=== PATIENT | male | born 1960 | race Caucasian/White ===

== ENCOUNTER 2019-05-11 11:02 | Observation (INO) | payer BC ==
[~2019-05-11] VITALS: Ht 165.1 cm; Wt 65.1 kg
--- NOTE | 2019-05-11 11:26 | PHYS DOC ---
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 Per EMS report patient's home health nurse showed up to his house and found him lethargic. Patient reports using 2 of his insulins but does not remember the names. EMS reported blood glucose was 109 on their arrival, glucose was repeated which was noted to be 31, they stated D10. Patient appears lethargic though arousable and able to carry small conversations. EMS reports his blood glucose usually runs at 500 baseline Review of Systems Review of Systems Constitutional: Denies fever or chills [] Eyes: Denies change in visual acuity, redness, or eye pain [] HENT: Denies nasal congestion or sore throat [] Respiratory: Denies cough or shortness of breath [] Cardiovascular: No additional information not addressed in HPI [] GI: Denies abdominal pain, nausea, vomiting, bloody stools or diarrhea [] : Denies dysuria or hematuria [] Musculoskeletal: Denies back pain or joint pain [] Integument: Denies rash or skin lesions [] Neurologic: Denies headache, focal weakness or sensory changes [] Endocrine: Reports hypoglycemia All other systems were reviewed and found to be within normal limits, except as documented in this note. Allergies Allergies Allergies Coded Allergies Type Severity Reaction Last Updated Verified No Known Drug Allergies 05/11/19 No Physical Exam Physical Exam Constitutional: Well developed, well nourished, no acute distress, non-toxic appearance. [] HENT: Normocephalic, atraumatic, bilateral external ears normal, oropharynx moist, no oral exudates, nose normal. [] Eyes: PERRLA, EOMI, conjunctiva normal, no discharge. [] Neck: Normal range of motion, no tenderness, supple, no stridor. [] Cardiovascular:Heart rate regular rhythm, no murmur [] Lungs & Thorax: Bilateral breath sounds clear to auscultation [] Abdomen: Bowel sounds normal, soft, no tenderness, no masses, no pulsatile masses. [] Skin: Warm, dry, no erythema, no rash. [] Back: No tenderness, no CVA tenderness. [] Extremities: No tenderness, no cyanosis, no clubbing, ROM intact, no edema. Left below the knee amputation Neurologic: Appears lethargic tough alert and oriented X 3, normal motor function, normal sensory function, no focal deficits noted. [] Psychologic: Affect normal, judgement normal, mood normal. [] Current Patient Data Vital Signs Vital Signs Date Time Temp Pulse Resp B/P (MAP) Pulse Ox O2 Delivery O2 Flow Rate FiO2 05/11/19 11:21 98.5 83 19 107/56 (73) 94 Room Air 98.5 Lab Values Laboratory Tests Test 05/11/19 11:18 05/11/19 12:05 Glucose (Fingerstick) 177 mg/dL (70-99) H Sodium Level 136 mmol/L (136-145) Potassium Level 3.6 mmol/L (3.5-5.1) Chloride Level 97 mmol/L (98-107) L Carbon Dioxide Level 30 mmol/L (21-32) Anion Gap 9 (6-14) Blood Urea Nitrogen 34 mg/dL (8-26) H Creatinine 1.2 mg/dL (0.7-1.3) Estimated GFR (Cockcroft-Gault) 61.8 BUN/Creatinine Ratio 28 (6-20) H Glucose Level 55 mg/dL (70-99) L Calcium Level 8.8 mg/dL (8.5-10.1) Magnesium Level 2.1 mg/dL (1.8-2.4) Total Bilirubin 0.3 mg/dL (0.2-1.0) Aspartate Amino Transferase (AST) 15 U/L (15-37) Alanine Aminotransferase (ALT) 16 U/L (16-63) Alkaline Phosphatase 83 U/L (46-116) Troponin I Quantitative < 0.017 ng/mL (0.000-0.055) Total Protein 7.2 g/dL (6.4-8.2) Albumin 3.4 g/dL (3.4-5.0) Albumin/Globulin Ratio 0.9 (1.0-1.7) L Laboratory Tests 05/11/19 12:05 EKG EKG [address] Carlin sinus rhythm Hr 88 no STEMI[] Radiology/Procedures Radiology/Procedures [] Course & Med Decision Making Course & Med Decision Making Pertinent Labs and Imaging studies reviewed. (See chart for details) This is a 4-year-old male patient presenting to the ED today to be evaluated for hypoglycemia. Patient apparently used to abuse insulins this morning, unfortunately he does not remember the names. Blood glucose was 109 on EMS arrival, it was repeated a couple minutes later which was 31. Patient was also noted to be lethargic, was started on D10. Blood glucose in the ED 177 D10 still running. CMP with glucose of 55. NS with D5 ordered. Spoke with Dr. Martins who accepted patient for admission. Dragon Disclaimer Dragon Disclaimer This electronic medical record was generated, in whole or in part, using a voice recognition dictation system. Departure Departure Impression: Primary Impression: Hypoglycemia Disposition: ADMITTED INPATIENT Condition: STABLE Referrals: KILO BRUMFIELD MD (PCP) JADA ROSE APRN May 11, 2019 11:26
[2019-05-11 12:26] LABS: CALCIUM 8.8 mg/dL (8.5-10.1); CREATININE 1.2 mg/dL (0.7-1.3); GFR 61.8; POTASSIUM 3.6 mmol/L (3.5-5.1)
[2019-05-11 12:32] LABS: ALBUMIN 3.4 g/dL (3.4-5.0); ALBUMIN/GLOBULIN RATIO 0.9 (1.0-1.7); MAGNESIUM 2.1 mg/dL (1.8-2.4); TOTAL BILIRUBIN 0.3 mg/dL (0.2-1.0); TOTAL PROTEIN 7.2 g/dL (6.4-8.2)
[2019-05-11] MEDS ORDERED: ONDANSETRON PF 4 MG/2 ML VIAL. IV PRN (14:30)
[2019-05-11] MEDS ORDERED: IV DEXTROSE 5% - 0.9 % NACL 1,000 ML IV SCH (14:30)
[2019-05-11] MEDS ORDERED: ACETAMINOPHEN 325 MG TABLET. PO PRN (14:30)
--- NOTE | 2019-05-11 14:48 | PDOC1 ---
History and Physical Date of Admission: Date of Admission DATE: 05/11/19 TIME: 14:45 Chief Complaint: Problems: (1) Hypoglycemia Chief Complain: Hypoglycemia History of Present Illness: HPI: This is a 58-year-old male who has diabetes and probably took too much insulin earlier today This was not intentional He's not sure which type of insulin he took When he developed mental status change EMS was called They discovered a glucose of around 31 Describes as symptoms as very nauseating Rated 7 out of 10 Has associated blurred vision Spell occurring for several hours I discussed this with the ER physician we are going to admit the patient and get his glucose regulated Past Medical/Surgical History: PMH/PSH: Diabetes Noncompliance Hypertension Hyperlipidemia Allergies: Allergies: Coded Allergies: No Known Drug Allergies (Unverified , 05/11/19) Family History: Family History: Diabetes Social History: Social Hisoty: He does not drink smoke or take drugs Current Medications: Current Medications Current Medications Ondansetron HCl (Zofran) 4 mg PRN Q8HRS PRN IV NAUSEA/VOMITING; Start 05/11/19 at 14:30; Stop 05/12/19 at 14:29 Morphine Sulfate (Morphine Sulfate) 2 mg PRN Q2HR PRN IV PAIN; Start 05/11/19 at 14:30; Stop 05/12/19 at 14:29 Acetaminophen (Tylenol) 650 mg PRN Q4HRS PRN PO FEVER; Start 05/11/19 at 14:30; Stop 05/12/19 at 14:29 Dextrose/Sodium Chloride 1,000 ml @ 75 mls/hr [id number] IV ; Start 05/11/19 at 14:30 ROS: Review of Systems Review of System REVIEW OF SYSTEMS: GENERAL: Complains of weakness SKIN: No bruising, hair changes or rashes. EYES: Complains of blurred vision NOSE AND THROAT: No history of nosebleeds, hoarseness or sore throat. HEART: No history of palpitations, chest pain or shortness of breath on exertion. LUNGS: Denies cough, hemoptysis, wheezing or shortness of breath. GASTROINTESTINAL: Complains of nausea but it's improved GENITOURINARY: No history of frequency, urgency, hesitancy or nocturia. NEUROLOGIC: Complains of some visual fuzziness PSYCHIATRIC: No history of panic, anxiety or depression. ENDOCRINE: No history of heat or cold intolerance, polyuria or polydipsia. EXTREMITIES: Denies joint pain, pain on walking or stiffness. Physical Exam: Vital Signs: Vital Signs Date Time Temp Pulse Resp B/P (MAP) Pulse Ox O2 Delivery O2 Flow Rate FiO2 05/11/19 11:21 98.5 83 19 107/56 (73) 94 Room Air 98.5 Physcial Exam: GEN: No apparent distress. Alert and oriented HEENT: Normal cephalic, atraumatic, external auditory canals are patent EYES: Extraocular muscles are intact, pupil are equally round and reactive to light and accommodation MUSCULOSKELETAL: Well developed , well nourished, good range of motion ENDOCRINE: No thyromegaly was palpated LYMPHATICS: No cervical chain or axillary nodes were noted HEMATOPOIETIC: No bruising NECK: Supple, no JVD, no thyromegaly was noted LUNGS: Clear to auscultation in all lung plata without rhonchi or wheezing HEART: RRR, S!, S2 present. Peripheral pulses intact, no obvious murmurs noted ABDOMEN: Soft, nontender. Positive bowel sounds, no organomegaly, normal bowel sounds EXTREMITIES: Without clubbing, cyanosis, or edema. Pedal pulses intact. Negative Homans sign NEUROLOGIC: Normal speech and tone. A&O x 3, moves all extremities, no obvious focal deficits PSYCHIATRIC: Normal affect, normal mood. Stable SKIN: No ulcerations or rashes, good skin turgor, no jaundice VASCULAR: Good capillary refill, neurovascular bundle appears to be intact Labs: Labs: Laboratory Tests Test 05/11/19 11:18 05/11/19 12:05 Glucose (Fingerstick) 177 mg/dL (70-99) Sodium Level 136 mmol/L (136-145) Potassium Level 3.6 mmol/L (3.5-5.1) Chloride Level 97 mmol/L (98-107) Carbon Dioxide Level 30 mmol/L (21-32) Anion Gap 9 (6-14) Blood Urea Nitrogen 34 mg/dL (8-26) Creatinine 1.2 mg/dL (0.7-1.3) Estimated GFR (Cockcroft-Gault) 61.8 BUN/Creatinine Ratio 28 (6-20) Glucose Level 55 mg/dL (70-99) Calcium Level 8.8 mg/dL (8.5-10.1) Magnesium Level 2.1 mg/dL (1.8-2.4) Total Bilirubin 0.3 mg/dL (0.2-1.0) Aspartate Amino Transf (AST/SGOT) 15 U/L (15-37) Alanine Aminotransferase (ALT/SGPT) 16 U/L (16-63) Alkaline Phosphatase 83 U/L (46-116) Troponin I Quantitative < 0.017 ng/mL (0.000-0.055) Total Protein 7.2 g/dL (6.4-8.2) Albumin 3.4 g/dL (3.4-5.0) Albumin/Globulin Ratio 0.9 (1.0-1.7) Laboratory Tests Test 05/11/19 11:18 05/11/19 12:05 Glucose (Fingerstick) 177 mg/dL (70-99) Sodium Level 136 mmol/L (136-145) Potassium Level 3.6 mmol/L (3.5-5.1) Chloride Level 97 mmol/L (98-107) Carbon Dioxide Level 30 mmol/L (21-32) Anion Gap 9 (6-14) Blood Urea Nitrogen 34 mg/dL (8-26) Creatinine 1.2 mg/dL (0.7-1.3) Estimated GFR (Cockcroft-Gault) 61.8 BUN/Creatinine Ratio 28 (6-20) Glucose Level 55 mg/dL (70-99) Calcium Level 8.8 mg/dL (8.5-10.1) Magnesium Level 2.1 mg/dL (1.8-2.4) Total Bilirubin 0.3 mg/dL (0.2-1.0) Aspartate Amino Transf (AST/SGOT) 15 U/L (15-37) Alanine Aminotransferase (ALT/SGPT) 16 U/L (16-63) Alkaline Phosphatase 83 U/L (46-116) Troponin I Quantitative < 0.017 ng/mL (0.000-0.055) Total Protein 7.2 g/dL (6.4-8.2) Albumin 3.4 g/dL (3.4-5.0) Albumin/Globulin Ratio 0.9 (1.0-1.7) Assessment/Plan Assessment/Plan Hypoglycemia Plan IV glucose Hold his insulin for now Hope to resume insulin either later tonight or tomorrow morning Monitor labs Home meds DVT prophylaxis Full code EDVIN GUARDADO III DO May 11, 2019 14:48
[2019-05-11 14:53] LABS: BASO # 0.1 x10^3/uL (0.0-0.2); BASO % 1 % (0-3); EOS # 0.2 x10^3/uL (0.0-0.7); EOS % 1 % (0-3); HEMATOCRIT 36.3 % (39.0-53.0); HEMOGLOBIN 11.9 g/dL (13.0-17.5); LYMPH # 1.2 x10^3/uL (1.0-4.8); LYMPH % 10 % (24-48); MEAN CORPUSCULAR HEMOGLOBIN 28 pg (25-35); MEAN CORPUSCULAR HGB CONC 33 g/dL (31-37); MEAN CORPUSCULAR VOLUME 85 fL (79-100); MONO # 0.6 x10^3/uL (0.0-1.1); MONO % 5 % (0-9); NEUT % 84 % (31-73); PLATELET COUNT 273 x10^3/uL (140-400); RED CELL DISTRIBUTION WIDTH 16.5 % (11.5-14.5)
[2019-05-11 16:15] VITALS: BP 121/65
[2019-05-11 19:00] VITALS: BP 134/58
[2019-05-11] MEDS ORDERED: GABA600T7 PO (19:00)
[2019-05-11] MEDS ORDERED: FAMO20TA5 PO (19:00)
[2019-05-11] MEDS ORDERED: LISI2.5T PO (19:00)
[2019-05-11] MEDS ORDERED: ATOR40TA59 PO (19:00)
[2019-05-11] MEDS ORDERED: CLOP75TA PO (19:00)
[2019-05-11] MEDS ORDERED: ISOS30TA4 PO (19:00)
[2019-05-11] MEDS ORDERED: ASPI-612 PO (19:00)
[2019-05-11] MEDS ORDERED: FERR-36 PO (19:00)
[2019-05-11] MEDS ORDERED: CARV3.123 PO (19:00)
[2019-05-11] MEDS ORDERED: SPIR25TA5 PO (19:00)
[2019-05-11] MEDS ORDERED: FURO80TA3 PO (19:00)
[2019-05-11] MEDS ORDERED: INSU100V6 SQ (19:00)
[2019-05-11] MEDS ORDERED: INSU100I13 SQ (19:00)
[2019-05-11 19:57] LABS: BILIRUBIN,URINE NEGATIVE (NEG); CLARITY,URINE CLEAR; COLOR,URINE YELLOW; NITRITE,URINE NEGATIVE (NEG); PROTEIN,URINE NEGATIVE (NEG-TRACE)
[2019-05-11 20:03] LABS: BARBITURATES NEG (NEG); BENZODIAZEPINES NEG (NEG); CANNABINOIDS NEG (NEG); COCAINE NEG (NEG); METHADONE NEG (NEG); OPIATES NEG (NEG); PHENCYCLIDINE NEG (NEG)
[2019-05-11 20:04] LABS: AMPHETAMINE/METHAMPHETAMINE NEG (NEG)
[2019-05-11 20:15] LABS: BACTERIA,URINE 0 /HPF (0-FEW); RBC,URINE OCC /HPF (0-2)
[2019-05-11 20:16] LABS: SQUAMOUS EPITHELIAL CELL,UR MOD /LPF
[2019-05-11 23:00] VITALS: BP 125/62
[2019-05-12] MEDS: MORPHINE SULFATE 2 MG/ML VIAL. IV PRN ×2 (00:13→08:29)
[2019-05-12] MEDS ORDERED: DEXTROSE 50% 25 GM / 50ML DISP.SYRIN. IV PRN (01:15)
[2019-05-12] MEDS ORDERED: IV DEXTROSE 5% 250 ML BAG. IV PRN (01:15)
--- NOTE | 2019-05-12 01:23 | NUR ---
Called Dr. Escamilla about elevated BS 302. Was given telephone order to add low dose sliding scale and a one time order now. changed fluids to Normal Saline At 50 Ml/hr.
[2019-05-12] MEDS ORDERED: IV NORMAL SALINE 1000ML BAG 1,000 ML IV SCH (01:30)
[2019-05-12] MEDS ORDERED: INSULIN LISPRO 300 UNITS/3 ML VIAL. SQ ONE (02:00)
[2019-05-12 03:00] VITALS: BP 122/76
[2019-05-12 06:00] LABS: CALCIUM 8.7 mg/dL (8.5-10.1); CREATININE 0.8 mg/dL (0.7-1.3); GFR 98.6; POTASSIUM 3.9 mmol/L (3.5-5.1)
--- NOTE | 2019-05-12 06:30 | EKG ---
[facility] [address] [place] [address] Test Date: 2019-05-11 Test Time: 11:35:30 Pat Name: KARIE PARK Department: Room: [facility] Gender: M E Commerce Developer: : 1960 Requested By: EDVIN GUARDADO Order Number: [id number] Reading MD: Measurements Intervals [place] Rate: 87 P: 42 CA: 162 QRS: 43 QRSD: 70 T: 67 QT: 364 QTc: 443 Interpretive Statements SINUS RHYTHM ATRIAL PREMATURE COMPLEX(ES) R-S TRANSITION ZONE IN V LEADS DISPLACED TO THE RIGHT OTHERWISE NORMAL ECG No previous ECG available for comparison
[2019-05-12 07:00] VITALS: BP 143/68
[2019-05-12] MEDS: INSULIN LISPRO 300 UNITS/3 ML VIAL. SQ SCH ×3 (08:00→17:36)
[2019-05-12 11:00] VITALS: BP 143/86
[2019-05-12] MEDS ORDERED: ASCORBIC ACID 500 MG TABLET PO SCH (11:00)
[2019-05-12] MEDS ORDERED: MULTIVITAMIN with MINERAL TABLET. PO SCH (11:00)
[2019-05-12] MEDS ORDERED: INSU100I13 SQ (11:55)
--- NOTE | 2019-05-12 12:01 | PDOC3 ---
Discharge Summary Visit Information Date of Admission: May 11, 2019 Date of Discharge: May 12, 2019 Final Diagnosis Hypoglycemia Hold his insulin for now Hope to resume insulin either later tonight or tomorrow morning Monitor labs Home meds DVT prophylaxis Full code Problems Medical Problems: (1) Hypoglycemia Status: Acute Brief Hospital Course Allergies Allergies Coded Allergies Type Severity Reaction Last Updated Verified No Known Drug Allergies 05/11/19 No Vital Signs Vital Signs Date Time Temp Pulse Resp B/P (MAP) Pulse Ox O2 Delivery O2 Flow Rate FiO2 05/12/19 09:02 16 Room Air 05/12/19 07:00 97.9 89 143/68 (93) 96 97.9 Lab Results Laboratory Tests Test 05/11/19 11:18 05/11/19 12:05 05/11/19 14:35 05/11/19 15:36 Glucose (Fingerstick) 177 mg/dL (70-99) 103 mg/dL (70-99) Sodium Level 136 mmol/L (136-145) Potassium Level 3.6 mmol/L (3.5-5.1) Chloride Level 97 mmol/L (98-107) Carbon Dioxide Level 30 mmol/L (21-32) Anion Gap 9 (6-14) Blood Urea Nitrogen 34 mg/dL (8-26) Creatinine 1.2 mg/dL (0.7-1.3) Estimated GFR (Cockcroft-Gault) 61.8 BUN/Creatinine Ratio 28 (6-20) Glucose Level 55 mg/dL (70-99) Calcium Level 8.8 mg/dL (8.5-10.1) Magnesium Level 2.1 mg/dL (1.8-2.4) Total Bilirubin 0.3 mg/dL (0.2-1.0) Aspartate Amino Transf (AST/SGOT) 15 U/L (15-37) Alanine Aminotransferase (ALT/SGPT) 16 U/L (16-63) Alkaline Phosphatase 83 U/L (46-116) Troponin I Quantitative < 0.017 ng/mL (0.000-0.055) Total Protein 7.2 g/dL (6.4-8.2) Albumin 3.4 g/dL (3.4-5.0) Albumin/Globulin Ratio 0.9 (1.0-1.7) White Blood Count 12.0 x10^3/uL (4.0-11.0) Red Blood Count 4.30 x10^6/uL (4.30-5.70) Hemoglobin 11.9 g/dL (13.0-17.5) Hematocrit 36.3 % (39.0-53.0) Mean Corpuscular Volume 85 fL (79-100) Mean Corpuscular Hemoglobin 28 pg (25-35) Mean Corpuscular Hemoglobin Concent 33 g/dL (31-37) Red Cell Distribution Width 16.5 % (11.5-14.5) Platelet Count 273 x10^3/uL (140-400) Neutrophils (%) (Auto) 84 % (31-73) Lymphocytes (%) (Auto) 10 % (24-48) Monocytes (%) (Auto) 5 % (0-9) Eosinophils (%) (Auto) 1 % (0-3) Basophils (%) (Auto) 1 % (0-3) Neutrophils # (Auto) 10.0 x10^3/uL (1.8-7.7) Lymphocytes # (Auto) 1.2 x10^3/uL (1.0-4.8) Monocytes # (Auto) 0.6 x10^3/uL (0.0-1.1) Eosinophils # (Auto) 0.2 x10^3/uL (0.0-0.7) Basophils # (Auto) 0.1 x10^3/uL (0.0-0.2) Test 05/11/19 16:28 05/11/19 19:50 05/11/19 20:25 05/12/19 00:45 Glucose (Fingerstick) 150 mg/dL (70-99) 266 mg/dL (70-99) 302 mg/dL (70-99) Urine Collection Type Unknown Urine Color Yellow Urine Clarity Clear Urine pH 6.0 Urine Specific [place] 1.015 Urine Protein Negative mg/dL (NEG-TRACE) Urine Glucose (UA) 100 mg/dL (NEG) Urine Ketones (Stick) Negative mg/dL (NEG) Urine Blood Negative (NEG) Urine Nitrite Negative (NEG) Urine Bilirubin Negative (NEG) Urine Urobilinogen Dipstick 1.0 mg/dL (0.2 mg/dL) Urine Leukocyte Esterase Trace (NEG) Urine RBC Occ /HPF (0-2) Urine WBC 5-10 /HPF (0-4) Urine Squamous Epithelial Cells Mod /LPF Urine Bacteria 0 /HPF (0-FEW) Urine Opiates Screen Neg (NEG) Urine Methadone Screen Neg (NEG) Urine Barbiturates Neg (NEG) Urine Phencyclidine Screen Neg (NEG) Urine Amphetamine/Methamphetamine Neg (NEG) Urine Benzodiazepines Screen Neg (NEG) Urine Cocaine Screen Neg (NEG) Urine Cannabinoids Screen Neg (NEG) Urine Ethyl Alcohol Neg (NEG) Test 05/12/19 03:17 05/12/19 04:10 05/12/19 07:51 05/12/19 11:23 Glucose (Fingerstick) 201 mg/dL (70-99) 197 mg/dL (70-99) 307 mg/dL (70-99) Sodium Level 136 mmol/L (136-145) Potassium Level 3.9 mmol/L (3.5-5.1) Chloride Level 101 mmol/L (98-107) Carbon Dioxide Level 28 mmol/L (21-32) Anion Gap 7 (6-14) Blood Urea Nitrogen 20 mg/dL (8-26) Creatinine 0.8 mg/dL (0.7-1.3) Estimated GFR (Cockcroft-Gault) 98.6 Glucose Level 194 mg/dL (70-99) Calcium Level 8.7 mg/dL (8.5-10.1) Laboratory Tests Test 05/11/19 12:05 05/11/19 14:35 05/11/19 15:36 05/11/19 16:28 Sodium Level 136 mmol/L (136-145) Potassium Level 3.6 mmol/L (3.5-5.1) Chloride Level 97 mmol/L (98-107) Carbon Dioxide Level 30 mmol/L (21-32) Anion Gap 9 (6-14) Blood Urea Nitrogen 34 mg/dL (8-26) Creatinine 1.2 mg/dL (0.7-1.3) Estimated GFR (Cockcroft-Gault) 61.8 BUN/Creatinine Ratio 28 (6-20) Glucose Level 55 mg/dL (70-99) Calcium Level 8.8 mg/dL (8.5-10.1) Magnesium Level 2.1 mg/dL (1.8-2.4) Total Bilirubin 0.3 mg/dL (0.2-1.0) Aspartate Amino Transf (AST/SGOT) 15 U/L (15-37) Alanine Aminotransferase (ALT/SGPT) 16 U/L (16-63) Alkaline Phosphatase 83 U/L (46-116) Troponin I Quantitative < 0.017 ng/mL (0.000-0.055) Total Protein 7.2 g/dL (6.4-8.2) Albumin 3.4 g/dL (3.4-5.0) Albumin/Globulin Ratio 0.9 (1.0-1.7) White Blood Count 12.0 x10^3/uL (4.0-11.0) Red Blood Count 4.30 x10^6/uL (4.30-5.70) Hemoglobin 11.9 g/dL (13.0-17.5) Hematocrit 36.3 % (39.0-53.0) Mean Corpuscular Volume 85 fL (79-100) Mean Corpuscular Hemoglobin 28 pg (25-35) Mean Corpuscular Hemoglobin Concent 33 g/dL (31-37) Red Cell Distribution Width 16.5 % (11.5-14.5) Platelet Count 273 x10^3/uL (140-400) Neutrophils (%) (Auto) 84 % (31-73) Lymphocytes (%) (Auto) 10 % (24-48) Monocytes (%) (Auto) 5 % (0-9) Eosinophils (%) (Auto) 1 % (0-3) Basophils (%) (Auto) 1 % (0-3) Neutrophils # (Auto) 10.0 x10^3/uL (1.8-7.7) Lymphocytes # (Auto) 1.2 x10^3/uL (1.0-4.8) Monocytes # (Auto) 0.6 x10^3/uL (0.0-1.1) Eosinophils # (Auto) 0.2 x10^3/uL (0.0-0.7) Basophils # (Auto) 0.1 x10^3/uL (0.0-0.2) Glucose (Fingerstick) 103 mg/dL (70-99) 150 mg/dL (70-99) Test 05/11/19 19:50 05/11/19 20:25 05/12/19 00:45 05/12/19 03:17 Urine Collection Type Unknown Urine Color Yellow Urine Clarity Clear Urine pH 6.0 Urine Specific [place] 1.015 Urine Protein Negative mg/dL (NEG-TRACE) Urine Glucose (UA) 100 mg/dL (NEG) Urine Ketones (Stick) Negative mg/dL (NEG) Urine Blood Negative (NEG) Urine Nitrite Negative (NEG) Urine Bilirubin Negative (NEG) Urine Urobilinogen Dipstick 1.0 mg/dL (0.2 mg/dL) Urine Leukocyte Esterase Trace (NEG) Urine RBC Occ /HPF (0-2) Urine WBC 5-10 /HPF (0-4) Urine Squamous Epithelial Cells Mod /LPF Urine Bacteria 0 /HPF (0-FEW) Urine Opiates Screen Neg (NEG) Urine Methadone Screen Neg (NEG) Urine Barbiturates Neg (NEG) Urine Phencyclidine Screen Neg (NEG) Urine Amphetamine/Methamphetamine Neg (NEG) Urine Benzodiazepines Screen Neg (NEG) Urine Cocaine Screen Neg (NEG) Urine Cannabinoids Screen Neg (NEG) Urine Ethyl Alcohol Neg (NEG) Glucose (Fingerstick) 266 mg/dL (70-99) 302 mg/dL (70-99) 201 mg/dL (70-99) Test 05/12/19 04:10 05/12/19 07:51 05/12/19 11:23 Sodium Level 136 mmol/L (136-145) Potassium Level 3.9 mmol/L (3.5-5.1) Chloride Level 101 mmol/L (98-107) Carbon Dioxide Level 28 mmol/L (21-32) Anion Gap 7 (6-14) Blood Urea Nitrogen 20 mg/dL (8-26) Creatinine 0.8 mg/dL (0.7-1.3) Estimated GFR (Cockcroft-Gault) 98.6 Glucose Level 194 mg/dL (70-99) Calcium Level 8.7 mg/dL (8.5-10.1) Glucose (Fingerstick) 197 mg/dL (70-99) 307 mg/dL (70-99) Brief Hospital Course Mr. Vanegas is a 58 old male, admit with weakness, symptomatic hypoglycemia, poss overdose Discharge Information Condition at Discharge: Improved Follow Up: Weeks Disposition/Orders: D/C to Home w/ HH Scheduled Aspirin (Aspirin Ec) 81 Mg Tablet.dr, 1 TAB PO DAILY for unknown, #30 Ref 3 (Reported) Entered as Reported by: ALEX COLIN on 05/11/191899 Last Taken: Unknown Dose on Unknown Date & Time Last Action: Reviewed on 05/11/191900 by ALEX COLIN Atorvastatin Calcium (Atorvastatin Calcium) 40 Mg Tablet, 40 MG PO QHS for unknown, (Reported) Entered as Reported by: ALEX COLIN on 05/11/191899 Last Taken: Unknown Dose on Unknown Date & Time Last Action: Reviewed on 05/11/191900 by ALEX COLIN Carvedilol (Carvedilol) 3.125 Mg Tablet, 3.125 MG PO BID for unknown, (Reported) Entered as Reported by: ALEX COLIN on 05/11/191899 Last Taken: Unknown Dose on Unknown Date & Time Last Action: Reviewed on 05/11/191900 by ALEX COLIN Clopidogrel Bisulfate (Clopidogrel) 75 Mg Tablet, 75 MG PO DAILY for unknown, (Reported) Entered as Reported by: ALEX COLIN on 05/11/191899 Last Taken: Unknown Dose on Unknown Date & Time Last Action: Reviewed on 05/11/191900 by ALEX COLIN Famotidine (Famotidine) 20 Mg Tablet, 20 MG PO BID for unknown, (Reported) Entered as Reported by: ALEX COLIN on 05/11/191899 Last Taken: Unknown Dose on Unknown Date & Time Last Action: Reviewed on 05/11/191900 by ALEX COLIN Ferrous Sulfate (Iron) 325 Mg Tablet, 1 TAB PO DAILY for supplement for 30 Days, #30 Ref 0 (Reported) Entered as Reported by: ALEX COLIN on 05/11/191899 Last Taken: Unknown Dose on Unknown Date & Time Last Action: Reviewed on 05/11/191900 by ALEX COLIN Furosemide (Furosemide) 80 Mg Tablet, 80 MG PO BID for unknown, (Reported) Entered as Reported by: ALEX COLIN on 05/11/191899 Last Taken: Unknown Dose on Unknown Date & Time Last Action: Reviewed on 05/11/191900 by ALEX COLIN Gabapentin (Gabapentin) 600 Mg Tablet, 600 MG PO QID for unknown, (Reported) Entered as Reported by: ALEX COLIN on 05/11/191899 Last Taken: Unknown Dose on Unknown Date & Time Last Action: Reviewed on 05/11/191900 by ALEX COLIN Insulin Glargine,Hum.rec.anlog (Lantus Solostar) 100 Unit/1 Ml Insuln.pen, 15 UNIT SQ QHS for dm, #15 Ref 3 (Reported) Entered as Reported by: ALEX COLIN on 05/11/191899 Last Action: Reviewed on 05/11/191900 by ALEX COLIN Insulin Lispro (Humalog) 100 Unit/1 Ml Vial, 4 UNIT SQ QIDACHS for dm, (Reported) Entered as Reported by: ALEX COLIN on 05/11/191899 Last Taken: Unknown Dose on Unknown Date & Time Last Action: Reviewed on 05/11/191900 by ALEX COLIN Isosorbide Mononitrate (Isosorbide Mononitrate Er) 30 Mg Tab.er.24h, 30 MG PO DAILY for unknown, (Reported) Entered as Reported by: ALEX COLIN on 05/11/191899 Last Taken: Unknown Dose on Unknown Date & Time Last Action: Reviewed on 05/11/191900 by ALEX COLIN Lisinopril (Lisinopril) 2.5 Mg Tablet, 2.5 MG PO DAILY for HTN, (Reported) Entered as Reported by: ALEX COLIN on 05/11/191899 Last Taken: Unknown Dose on 05/11/19 Last Action: Reviewed on 05/11/191900 by ALEX COLIN Spironolactone (Spironolactone) 25 Mg Tablet, 25 MG PO DAILY for CHF, (Reported) Entered as Reported by: ALEX COLIN on 05/11/191899 Last Taken: Unknown Dose on Unknown Date & Time Last Action: Reviewed on 05/11/191900 by ALEX COLIN Patient Instructions Patient Instructions < 30 min NAVJOT VILCHIS MD May 12, 2019 12:01
--- NOTE | 2019-05-12 12:22 | NUR ---
Wound Care Wound care consult for left BKA dehisced incision. Wound bed is soft slough covered. Wound cleansed and redressed with Medihoney, Xeroform and foam dressing, secured with Kerlix. Recommend to change every 2-3 days. No other wounds noted. Pt stated Dr Fernandez is managing wound but knows he can call wound clinic if he wants to see us. Pt is discharging today. Pt educated on wound care and PU prevention.
--- NOTE | 2019-05-12 13:47 | NUR ---
SW following. Discussed with RN, pt is discharging home today with home health. Pt has [facility]. SW awaiting the discharge paperwork to fax to [facility]. RN notified. RN arranging transportation with [facility] transport. SW will continue to follow.
--- NOTE | 2019-05-12 13:49 | SNU/HH DC ---
DISCHARGE WITH HOME HEALTH DISCHARGE INFORMATION: Discharge Date: May 12, 2019 Final Diagnosis: Problems Medical Problems: (1) Hypoglycemia Status: Acute Condition on Discharge: Stable CODE STATUS: Code Status: Full HOME HEALTH: Face to Face: I certify this patient is under my care and that I, or a nurse practitioner or physician's metal moulder's assistant working with me, had a face to face encounter that meets the physician face to face encounter requirements with this patient on []. Medical Complications: DM Alf For: Assess & Educate Safety, Medication Management RN For Eval/Treatment: Yes Physical Therapy For: Evalulation/Treatment Occupational Therapy For: Evaluation/Treatment Pt Meets Homebound Status: Extreme weakness w/ amb., Limited distance walking, Poor cognition POST DISCHARGE ORDERS: Activity Instructions for Disc: Resume previous activity, Activity as tolerated Weight Bearing Status after Di: No restrictions, Full weight bearing, As tolerated CERTIFICATION STATEMENT: Certification Statement: Certification Statement: Based on the above finding, I certify that this patient is confined to the home and needs intermittent alf care, physical therapy and/or speech therapy, or continues to need occupational therapy.~ This patient is under my care, and I have initiated the establishment of the plan of care.~ This patient will be followed by myself or a community physician who will periodically review the plan of care. Home Meds Reported Medications Aspirin (ASPIRIN EC) 81 Mg Tablet.dr, 1 TAB PO DAILY for unknown, #30 TAB 3 Re fills 05/11/19 Famotidine (FAMOTIDINE) 20 Mg Tablet, 20 MG PO BID for unknown, TAB 05/11/19 Ferrous Sulfate (IRON) 325 Mg Tablet, 1 TAB PO DAILY for supplement for 30 Days, #30 TAB 0 Refills 05/11/19 Insulin Glargine,Hum.rec.anlog (LANTUS SOLOSTAR) 100 Unit/1 Ml Insuln.pen, 15 UNIT SQ QHS for dm, #15 ML 3 Refills 05/11/19 Insulin Lispro (HUMALOG) 100 Unit/1 Ml Vial, 4 UNIT SQ QIDACHS for dm, VIAL 05/11/19 Gabapentin (GABAPENTIN) 600 Mg Tablet, 600 MG PO QID for unknown 05/11/19 Clopidogrel Bisulfate (CLOPIDOGREL) 75 Mg Tablet, 75 MG PO DAILY for unknown 05/11/19 Atorvastatin Calcium (ATORVASTATIN CALCIUM) 40 Mg Tablet, 40 MG PO QHS for unknown 05/11/19 Carvedilol (Carvedilol) 3.125 Mg Tablet, 3.125 MG PO BID for unknown 05/11/19 Isosorbide Mononitrate (ISOSORBIDE MONONITRATE ER) 30 Mg Tab.er.24h, 30 MG PO DAILY for unknown 05/11/19 Lisinopril (LISINOPRIL) 2.5 Mg Tablet, 2.5 MG PO DAILY for HTN 05/11/19 Furosemide (FUROSEMIDE) 80 Mg Tablet, 80 MG PO BID for unknown 05/11/19 Spironolactone (SPIRONOLACTONE) 25 Mg Tablet, 25 MG PO DAILY for CHF 05/11/19 NAVJOT VILCHIS MD May 12, 2019 13:49
[2019-05-12 15:00] VITALS: BP 137/71
--- NOTE | 2019-05-12 19:12 | NUR ---
Discharge Note: [facility] Discharge instructions and discharge home medications reviewed with Patient and a copy given. All questions have been answered and understanding verbalized. The following instructions and handouts were given: malnutrion, hypoglycemia Discontinued lines and drains: Peripheral IV intact. Patient discharged to home with home health via hospital transportation
== END 2019-05-12 19:16 | disposition home health service (06) ==
LOC: ER 11:02 → 4 NORTH 13:00 → INTOOBSV 13:00
PROVIDERS: ADMIT Internal Medicine; ATTEND Internal Medicine
DX: E11.649 Type 2 diabetes mellitus with hypoglycemia without coma (principal); I10 Essential (primary) hypertension; E78.5 Hyperlipidemia, unspecified; Z91.19 Patient's noncompliance with other medical treatment and regimen; Z89.512 Acquired absence of left leg below knee; Z79.4 Long term (current) use of insulin; Z79.899 Other long term (current) drug therapy
CPT/HCPCS: 36415; 80048; 80053; 80307; 81001; 82962; 83735; 84484; 85025; 87086; 93005; 96365; 96366; 96372; 96375; 96376; 97161; 99284; G0378; J1815; J2270; J7030; J7042; 96360; 99285; G0379